=== PATIENT | female | born 1955 | race Caucasian/White ===

== ENCOUNTER 2016-03-08 22:45 | Emergency (ER) | payer OTHER ==
--- NOTE | 2016-03-09 08:18 | CT ---
HEAD CT WITHOUT CONTRAST HISTORY: Ground-level fall with frontal hematoma. No intravenous contrast administered. Contiguous axial images acquired from skull base to vertex. COMPARISON:None. BRAIN VOLUME: Mild diffuse volume loss commensurate with patient age. VENTRICULAR SIZE:No gross ventriculomegaly. FOCAL MASS EFFECT:None. ACUTE INTRACRANIAL HEMORRHAGE:None. CALVARIUM:Grossly intact. Left frontal scalp hematoma is evident VISIBLE PARANASAL SINUSES AND MASTOID AIR CELLS:Grossly clear. IMPRESSION: 1. No gross mass effect, depressed calvarial fracture, or acute intracranial hemorrhage. 2. Moderately extensive left frontal scalp hematoma. Preliminary report relayed to the Emergency Medicine medical service by Dr. Sultana on 03/08/2016 at 2355 hours.
--- NOTE | 2016-03-09 08:24 | CT ---
CERVICAL SPINE CT WITHOUT CONTRAST HISTORY: Ground-level fall, left frontal hematoma. No intravenous contrast administered contiguous axial images acquired from the posterior fossa to the T3 level. FINDINGS ALIGNMENT: Reversal of lordosis with mild anterolisthesis at C3-4 and C4-5 levels. COMPRESSION DEFORMITY: None. DISC SPACES: Severe disc space narrowing at C5-6 and C6-7 levels with lesser degrees of narrowing at the remaining levels. FRACTURE: None identified. A gas-filled lesion is identified at the C5 vertebral body, which may relate relate to a prior endplate herniation. A well-defined low-attenuation lesion seen posteriorly at the C6 vertebral body is nonspecific but well-defined, measuring 3 mm in size. DEGENERATIVE CHANGE: At C2-3 there is a small central protrusion. At C3/4 there is a small left paracentral protrusion. At C4-5 there is a broad-based central protrusion. Evaluation of soft tissue contents of the spinal canal below this level are limited by shoulder artifact. There is asymmetric degeneration of the left C2-3, left C3-4, and right C4-5 facet joints. FORAMINAL NARROWING: Mild narrowing at the C5-6 and C6-7 levels. PARASPINAL SOFT TISSUES: Airway patent. No gross mass effect. LUNG APICES: Grossly unremarkable within field of view. PARANASAL SINUSES: Mucosal thickening at the left maxillary sinus. IMPRESSION: 1. No cervical spine fracture identified. 2. Moderately severe changes of cervical spondylosis, disc degeneration worst at C5-6 and C6-7 levels, with asymmetric upper cervical facet degeneration. 3. Small upper cervical disc protrusions. Preliminary report relayed to the Emergency Medicine medical service by Dr. Sultana on 03/08/2016 at 2355 hours.
== END 2016-03-09 00:22 | disposition home or self-care (01) ==
LOC: ED 22:45
DX: S00.83XA Contusion of other part of head, initial encounter (principal); F10.129 Alcohol abuse with intoxication, unspecified; Y90.8 Blood alcohol level of 240 mg/100 ml or more; I10 Essential (primary) hypertension; F17.210 Nicotine dependence, cigarettes, uncomplicated